=== PATIENT | female | born 1990 | race Two or more races ===

== ENCOUNTER 2016-08-26 08:20 | Inpatient (IN) | payer OTHER ==
[2016-08-26] MEDS ORDERED: ELECTROLYTE-148 SOLN 500 ML IV SCH ×2 (08:30→09:00)
--- NOTE | 2016-08-26 08:55 | HP ---
Past Medical History - Admission Chief Complaint: Labor History of Present Illness: 25 yo G P EDC EGA 39 weeks admitted for labor possible ROM History Source: Patient - Past Surgical History Past Surgical History: Yes: None Hx Myomectomy: No Hx Transabdominal Cerclage: No - Smoking History Have you smoked in the past 12 months: No Home Medications - Allergies Allergies/Adverse Reactions: Allergies Allergy/AdvReac Type Severity Reaction Status Date / Time No Known Allergies Allergy Verified 08/21/16 15:32 - Home Medications Home Medications: Ambulatory Orders Vit/Iron Fumarate/FA [ Tablet] 1 tab PO DAILY 08/21/16 Physical Exam - Maternity Constitutional: Yes: Well Nourished, No Distress Hemorrhage Risk Assessment - Risk Factors Risk Score: 0 Risk Level: Low Risk Problem List - Problems (1) Labor established Code(s): [id number] - Assessment/Plan IUP at 39 weeks Labor Plan Admit epidural
[2016-08-26] MEDS: FENTANYL/BUPIVACAINE/NS/PF - PCEA - 50 ML DISP.SYRIN EP SCH (09:00)
[2016-08-26] MEDS ORDERED: DEXTROSE 5%-LACTATED RINGERS 1,000 ML IV SCH (09:00)
[2016-08-26 09:01] VITALS: BMI 30.4
[2016-08-26 10:05] LABS: BASOPHIL 0.7 % (0-2.0); EOSINOPHIL 0.8 % (0-4.5); MCH 28.9 pg (25.7-33.7); MCHC 34.1 g/dl (32.0-36.0); MEAN CELL VOLUME 84.9 fl (80-96); MEAN PLT VOLUME 7.8 fl (7.5-11.1); NEUTROPHILS 70.8 % (42.8-82.8); PLATELET COUNT 229 K/MM3 (134-434); RDW 14.3 % (11.6-15.6); WHITE BLOOD COUNT 11.7 K/mm3 (4.0-10.0)
[2016-08-26 10:21] LABS: INR 0.96 (0.82-1.09); PROTHROMBIN TIME (PATIENT) 10.5 SEC (9.98-11.88)
[2016-08-26 10:24] LABS: ACTIVATED PTT 27.8 SECONDS (26.9-34.4)
[2016-08-26 10:35] LABS: CALCIUM 8.2 mg/dL (8.5-10.1); COCKROFT - GAULT 192.1; CREATININE 0.5 mg/dL (0.55-1.02)
--- NOTE | 2016-08-26 12:53 | PN ---
Ante-Partal Exam - Subjective Vital Signs: Vital Signs Temperature 97.4 F L 08/26/16 10:00 Pulse Rate 80 08/26/16 12:30 Respiratory Rate 20 08/26/16 12:30 Blood Pressure 94/60 08/26/16 12:30 O2 Sat by Pulse Oximetry (%) 100 08/26/16 12:30 Bleeding: No Headache: No Visual changes: No Right upper quadrant pain: No - Contractions Contractions: Yes Regularity: Irregular Intensity: Mild Monitor Mode: External - Exam during Labor Category: I Monitor Accelerations: Present Monitor Decelerations: None Exam: Vaginal Dilatation (cm): 8 Effacement (%): 80 Amniotic Membrane Status: Ruptured Presentation: Vertex Station: -1 - Intrapartum Hemorrhage Risk Risk Score: 0 Risk Level: Low Risk - Assessment/Plan Assessment/Plan: iup at 39 labor Plan [facility] tian
[2016-08-26] MEDS ORDERED: OXYTOCIN 15 UNITS/ LR 250 ML 250 ML IVPB SCH (13:00)
[2016-08-26] MEDS ORDERED: [UNRECOGNIZED DRUG - OTHER] IV ONE (14:15)
[2016-08-26] MEDS ORDERED: OXYTOCIN IV ONE (14:15)
[2016-08-26] MEDS ORDERED: D5W-LR W/ 20 UNITS OXYTOCIN 1,000 ML IV SCH (14:45)
[2016-08-26 14:50] LABS: ARTERIAL BLOOD GAS BASE EXCESS 0.6 meq/l (-2-2); ARTERIAL BLOOD GAS HCO3 27.1 meq/L (22-26); ARTERIAL BLOOD GAS pH 7.33 (7.35-7.45)
[2016-08-26 14:51] LABS: LPM/O2% 21%; PT. ON O2? NO; TYPE OF O2 ROOM AIR
[2016-08-26 14:52] LABS: ARTERIAL BLD GAS O2 SATURATION 34.1 % (90-98.9); ARTERIAL BLOOD GAS PO2 20.2 mmHg (80-100)
[2016-08-26 15:00] LABS: ARTERIAL BLD GAS O2 SATURATION 77.2 % (90-98.9); ARTERIAL BLOOD GAS BASE EXCESS -0.6 meq/l (-2-2); ARTERIAL BLOOD GAS HCO3 23.7 meq/L (22-26); ARTERIAL BLOOD GAS pH 7.39 (7.35-7.45)
[2016-08-26 15:03] LABS: ARTERIAL BLOOD GAS PO2 36.3 mmHg (80-100); PT. ON O2? NO
[2016-08-26 15:04] LABS: LPM/O2% 21%; TYPE OF O2 ROOM AIR
--- NOTE | 2016-08-26 16:08 | PN ---
Delivery - Delivery Vaginal Delivery: No Problems Type of Anesthesia: Epidural Episiotomy/Laceration: 1st degree EBL (cc): 300 (Nuchal X 1 shoulders delivered without complications) Delivery, Single - Stages of Labor Date 1st Stage Initiatied: 08/26/16 Time 1st Stage Initiated: 07:00 Date 2nd Stage Initiated: 08/26/16 Time 2nd Stage Initiated: 13:55 Date of Delivery: 08/26/16 Time of Delivery: 14:01 Time Placenta Delivered: 14:05 Placenta: Yes: Spontaneous - Condition of Infant Oral And Maxillofacial Pathologist/Institution Librarian Present: No Gender: Female Weight: 5 lb 14 oz Position: OA Total Hours ROM (Hrs/Mins): 7HRS 5MIN - 1 Minute Total Score: 9 5 Minutes Total Score: 9 - Feeding Plan Initial Plan: Exclusive throughout hospitalization
[2016-08-26] MEDS ORDERED: BENZOCAINE 20% 57 GM BOTTLE TP PRN (16:09)
[2016-08-26] MEDS ORDERED: WITCH HAZEL 50% (TUCKS) 40 PAD/JAR PAD TP PRN (16:09)
[2016-08-26] MEDS ORDERED: BENZOCAINE 28 GM HEMORRHOIDAL OINTMENT PR PRN (16:09)
[2016-08-26] MEDS ORDERED: METHYLERGONOVINE MALEATE 0.2 MG/1 ML AMP IM PRN (16:09)
[2016-08-26] MEDS ORDERED: BISACODYL 10 MG SUPP.RECT RC PRN (16:09)
[2016-08-26] MEDS ORDERED: TUBERCULIN PPD 5 TU/0.1ML SYRINGE (IN PATIENT USE ONLY) ID ONE (17:15)
[2016-08-26] MEDS: ACETAMINOPHEN 325 MG TABLET (FP) PO PRN (18:14)
[2016-08-26] MEDS: IBUPROFEN 600 MG TABLET (FP) PO PRN (18:14)
[2016-08-27] MEDS: IBUPROFEN 600 MG TABLET (FP) PO PRN ×4 (00:30→21:39)
[2016-08-27] MEDS: ACETAMINOPHEN 325 MG TABLET (FP) PO PRN ×4 (00:30→21:39)
[2016-08-27 06:48] LABS: BASOPHIL 0.5 % (0-2.0); EOSINOPHIL 1.9 % (0-4.5); MCH 29.2 pg (25.7-33.7); MCHC 34.3 g/dl (32.0-36.0); MEAN CELL VOLUME 85.1 fl (80-96); MEAN PLT VOLUME 7.8 fl (7.5-11.1); NEUTROPHILS 65.9 % (42.8-82.8); PLATELET COUNT 205 K/MM3 (134-434); RDW 14.3 % (11.6-15.6); WHITE BLOOD COUNT 11.6 K/mm3 (4.0-10.0)
--- NOTE | 2016-08-27 07:29 | PN ---
Post Note - Post Date of Delivery: 08/26/16 Post Day: 1 Vital Signs: Vital Signs - 24 hr 08/26/16 08/26/16 08/26/16 09:00 09:05 09:10 Temperature Pulse Rate 89 82 89 Respiratory 20 20 20 Rate Blood Pressure 106/67 101/57 102/55 O2 Sat by Pulse 100 100 99 Oximetry (%) 08/26/16 08/26/16 08/26/16 09:15 09:20 09:30 Temperature Pulse Rate 91 H 88 75 Respiratory 20 18 20 Rate Blood Pressure 102/59 102/56 100/57 O2 Sat by Pulse 100 99 Oximetry (%) 08/26/16 08/26/16 08/26/16 09:45 10:00 10:15 Temperature 97.4 F L Pulse Rate 70 75 75 Respiratory 20 20 18 Rate Blood Pressure 94/57 98/58 101/65 O2 Sat by Pulse 100 99 100 Oximetry (%) 08/26/16 08/26/16 08/26/16 10:30 10:45 11:00 Temperature Pulse Rate 79 81 77 Respiratory 20 20 18 Rate Blood Pressure 97/61 82/55 88/60 O2 Sat by Pulse 100 100 100 Oximetry (%) 08/26/16 08/26/16 08/26/16 11:15 11:30 11:45 Temperature Pulse Rate 79 69 72 Respiratory 20 20 20 Rate Blood Pressure 97/65 93/63 87/64 O2 Sat by Pulse 100 100 100 Oximetry (%) 08/26/16 08/26/16 08/26/16 12:00 12:15 12:30 Temperature Pulse Rate 71 68 80 Respiratory 20 20 20 Rate Blood Pressure 84/61 98/65 94/60 O2 Sat by Pulse 100 100 100 Oximetry (%) 08/26/16 08/26/16 08/26/16 12:45 13:00 13:15 Temperature 97.6 F Pulse Rate 76 74 76 Respiratory 20 20 20 Rate Blood Pressure 115/62 109/61 108/62 O2 Sat by Pulse 100 100 100 Oximetry (%) 08/26/16 08/26/16 08/26/16 13:30 13:45 14:15 Temperature Pulse Rate 84 74 90 Respiratory 20 20 20 Rate Blood Pressure 102/63 105/63 109/84 O2 Sat by Pulse 100 100 100 Oximetry (%) 08/26/16 08/26/16 08/26/16 14:30 14:45 15:00 Temperature 97.6 F Pulse Rate 100 H 68 65 Respiratory 20 20 20 Rate Blood Pressure 89/63 90/46 93/44 O2 Sat by Pulse 100 100 100 Oximetry (%) 08/26/16 08/26/16 08/26/16 16:00 18:00 21:59 Temperature 98.3 F 97.6 F Pulse Rate 79 102 H 85 Respiratory 20 18 18 Rate Blood Pressure 102/65 108/62 113/61 O2 Sat by Pulse Oximetry (%) 08/27/16 08/27/16 02:00 06:00 Temperature 98.0 F 97.8 F Pulse Rate 76 68 Respiratory 18 18 Rate Blood Pressure 90/36 105/52 O2 Sat by Pulse Oximetry (%) Labs: Laboratory Results - last 24 hr 08/26/16 08/26/16 08/26/16 09:25 09:25 09:25 WBC 11.7 H RBC 4.34 Hgb 12.6 Hct 36.8 MCV 84.9 MCHC 34.1 RDW 14.3 Plt Count 229 MPV 7.8 Neutrophils % 70.8 Lymphocytes % 21.5 Monocytes % 6.2 Eosinophils % 0.8 Basophils % 0.7 INR 0.96 PTT (Actin FS) 27.8 Anticoagulation Therapy Puncture Site ABG pH ABG pCO2 at Pt Temp ABG pO2 at Pt Temp ABG HCO3 ABG O2 Sat (Measured) ABG O2 Content ABG Base Excess Enrique Test O2 Delivery Device Oxygen Flow Rate Vent Mode Vent Rate Mechanical Rate Pressure Support Vent Sodium 138 Potassium 3.4 L Chloride 103 Carbon Dioxide 23 Anion Gap 12 BUN 7 Creatinine 0.5 L Random Glucose 89 Calcium 8.2 L RPR Titer Blood Type Antibody Screen 08/26/16 08/26/16 08/26/16 09:25 09:25 09:25 WBC RBC Hgb Hct MCV MCHC RDW Plt Count MPV Neutrophils % Lymphocytes % Monocytes % Eosinophils % Basophils % INR PTT (Actin FS) Anticoagulation Therapy Puncture Site ABG pH ABG pCO2 at Pt Temp ABG pO2 at Pt Temp ABG HCO3 ABG O2 Sat (Measured) ABG O2 Content ABG Base Excess Enrique Test O2 Delivery Device Oxygen Flow Rate Vent Mode Vent Rate Mechanical Rate Pressure Support Vent Sodium Potassium Chloride Carbon Dioxide Anion Gap BUN Creatinine Random Glucose Calcium RPR Titer Nonreactive Blood Type O POSITIVE O POSITIVE Antibody Screen Negative 08/26/16 08/26/16 08/27/16 14:45 14:57 05:50 WBC 11.6 H RBC 3.79 Hgb 11.1 D Hct 32.2 L MCV 85.1 MCHC 34.3 RDW 14.3 Plt Count 205 MPV 7.8 Neutrophils % 65.9 Lymphocytes % 26.2 D Monocytes % 5.5 Eosinophils % 1.9 D Basophils % 0.5 INR PTT (Actin FS) Anticoagulation Therapy Y Puncture Site Md puncture Md puncture ABG pH 7.33 L 7.39 ABG pCO2 at Pt Temp 52.3 H 39.7 D ABG pO2 at Pt Temp 20.2 L* 36.3 L* D ABG HCO3 27.1 H 23.7 ABG O2 Sat (Measured) 34.1 L* 77.2 L ABG O2 Content 7.4 L* 16.3 ABG Base Excess 0.6 -0.6 Enrique Test Not applicable Not applicable O2 Delivery Device Room air Room air Oxygen Flow Rate 21% 21% Vent Mode Y Vent Rate Y Mechanical Rate Y Pressure Support Vent Y Sodium Potassium Chloride Carbon Dioxide Anion Gap BUN Creatinine Random Glucose Calcium RPR Titer Blood Type Antibody Screen - Subjective Subjective: No Complaints - Objective Afebrile: Yes Breast: Not engorged Abdomen: Soft, Non-tender Uterus: Fundus firm Vagina: Scant lochia Extremities: Non-tender - Assessment/Plan (1) Labor established Assessment: S/P Normal Plan: Routine Care
[2016-08-27] MEDS: FENTANYL/BUPIVACAINE/NS/PF - PCEA - 50 ML DISP.SYRIN EP SCH (17:07)
[2016-08-28] MEDS: IBUPROFEN 600 MG TABLET (FP) PO PRN (07:46)
[2016-08-28] MEDS: ACETAMINOPHEN 325 MG TABLET (FP) PO PRN (07:47)
[2016-08-28 08:51] VITALS: BP 92/53; PULSE 66; TEMP 97.5
--- NOTE | 2016-08-28 10:33 | DS ---
Physical Exam-RESEARCH ADMINISTRATOR Vital Signs: Vital Signs Temperature 97.5 F L 08/28/16 08:50 Pulse Rate 66 08/28/16 08:50 Respiratory Rate 20 08/28/16 08:50 Blood Pressure 92/53 08/28/16 08:50 O2 Sat by Pulse Oximetry (%) 100 08/26/16 15:00 Constitutional: Yes: Well Nourished, No Distress Gastrointestinal: Yes: WNL, Soft ....Post : Yes: Uterus firm, Uterus non-tender Breast(s): Yes: WNL Musculoskeletal: Yes: WNL Extremities: Yes: WNL Labs: CBC, BMP 08/27/16 05:50 08/26/16 09:25 Delivery - Delivery Vaginal Delivery: No Problems Type of Anesthesia: Epidural Episiotomy/Laceration: 1st degree EBL (cc): 300 (Nuchal X 1 shoulders delivered without complications) Delivery, Single - Stages of Labor Date 1st Stage Initiatied: 08/26/16 Time 1st Stage Initiated: 07:00 Date 2nd Stage Initiated: 08/26/16 Time 2nd Stage Initiated: 13:55 Date of Delivery: 08/26/16 Time of Delivery: 14:01 Time Placenta Delivered: 14:05 Placenta: Yes: Spontaneous - Condition of Automotive Production Worker/Raw Finish Mill Operator Present: No Infant Gender: Female Weight: 5 lb 14 oz Position: OA Total Hours ROM (Hrs/Mins): 7HRS 5MIN - 1 Minute Total Score: 9 5 Minutes Total Score: 9 - [place] Feeding Plan Initial Plan: Exclusive throughout hospitalization Discharge Summary Reason For Visit: LABOR Current Active Problems Labor established (Acute) Procedures: Principal: Normal vaginal delivery Hospital Course: unremarkable Condition: Good - Instructions Diet, Activity, Other Instructions: call and schedule appointment 4 weeks for checkup. Referrals: Brynn Fernando MD [Staff Physician] - - Home Medications Comprehensive Discharge Medication List: Ambulatory Orders Vit/Iron Fumarate/FA [ Tablet] 1 tab PO DAILY 08/21/16 Ibuprofen [Motrin -] 600 mg PO QID PRN #28 tablet 08/28/16
== END 2016-08-28 11:00 | disposition home or self-care (01) | DRG 560 ==
LOC: JLDR 08:20 → J3W 08-27 16:37
PROVIDERS: ADMIT Obstetrics & Gynecology; ATTEND Obstetrics & Gynecology
PROC: 0HQ9XZZ Repair Perineum Skin, External Approach (ICD-10-PCS; principal; 2016-08-26)
PROC: 10E0XZZ Delivery of Products of Conception, External Approach (ICD-10-PCS; 2016-08-26)
PROC: 0W8NXZZ Division of Female Perineum, External Approach (ICD-10-PCS; 2016-08-26)
DX: O70.0 First degree perineal laceration during delivery (principal); Z3A.39 39 weeks gestation of pregnancy; Z37.0 Single live birth
CPT/HCPCS: 36415; 36600; 59409; 80048; 82803; 85025; 85610; 85730; 86593; 86850; 86900; 86901